=== PATIENT | female | born 1975 | race American Indian/Alaskan Native ===

== ENCOUNTER → 2018-10-29 | Outpatient (CLI) | payer OTHER ==
[2015-05-23 10:56] VITALS: BMI 30.9
[~2018-10-29] MED LIST: ACET-1718 PO; HYDR-653 PO; IBUP800T37 PO
[2018-10-29 09:27] LABS: PLATELET COUNT, AUTOMATED 345 K/uL (150-450)
[2018-10-29 10:55] LABS: LDL CHOLESTEROL 92 mg/dl
--- NOTE | 2018-10-29 11:26 | RADIOLOGY IMAGING REPORT ---
FACILITY: [facility] [place] PATIENT NAME: Santiago Whiteside : 1975 MR: [id number] V: [id number] EXAM DATE: ORDERING PHYSICIAN: LÓPEZ NARAYANAN TECHNOLOGIST: Location: [facility] Patient: Santiago Whiteside : 1975 Visit/Account:[id number] Date of Sevice: 10/29/2018 Exam type: KNEE 3 VIEW LEFT History: Left knee pain Comparison: None. Findings: Three standing views of the left knee demonstrates mild narrowing of the medial compartment. There i s no evidence of acute fracture or dislocation. No radiopaque intra-articular loose body is seen. IMPRESSION: 1. Mild narrowing of the medial compartment of the left knee Report Dictated By: Radha Pepper MD at 10/29/2018 11:19 AM Report E-Signed By: Radha Pepper MD at 10/29/2018 11:20 AM WSN:[email or web address]
--- NOTE | 2018-10-29 11:31 | RADIOLOGY IMAGING REPORT ---
FACILITY: [facility] [place] PATIENT NAME: Santiago Whiteside : 1975 MR: [id number] V: [id number] EXAM DATE: ORDERING PHYSICIAN: LÓPEZ NARAYANAN TECHNOLOGIST: Location: [facility] [place] Patient: Santiago Whiteside : 1975 Visit/Account:[id number] Date of Sevice: 10/29/2018 Exam type: CERVICAL SPINE 2 OR 3 VIEW History: Neck pain Comparison: None. Findings: Three views were submitted. C1 C7 are seen in gross anatomic alignment. There is no evidence of acu te fractures or subluxations. This mild disc space narrowing at C7-T1. No evidence of prevertebral soft tissue swelling IMPRESSION: 1. Mild disc space narrowing at C7-T1 Report Dictated By: Radha Pepper MD at 10/29/2018 11:25 AM Report E-Signed By: Radha Pepper MD at 10/29/2018 11:26 AM WSN:[email or web address]
--- NOTE | 2018-10-29 11:32 | RADIOLOGY IMAGING REPORT ---
FACILITY: [facility] PATIENT NAME: Santiago Whiteside : 1975 MR: [id number] V: [id number] EXAM DATE: ORDERING PHYSICIAN: LÓPEZ NARAYANAN TECHNOLOGIST: Location: [facility] Patient: Santiago Whiteside : 1975 Visit/Account:[id number] Date of Sevice: 10/29/2018 Exam type: L-SPINE 2 OR 3 VIEW History: Back pain Comparison: None. Findings: Two views were submitted There five nonrib-bearing lumbar-type vertebral bodies present. There is no evidence of acute fractu res or subluxations. The disc spaces appear well-preserved. IMPRESSION: 1. AP and lateral views lumbar spine are unremarkable. If the patient's pain continues MR may be he lpful Report Dictated By: Radha Pepper MD at 10/29/2018 11:20 AM Report E-Signed By: Radha Pepper MD at 10/29/2018 11:25 AM WSN:[email or web address]
== END ==
LOC: LAB 08:46
PROVIDERS: ATTEND Chiropractor Internist
DX: Z00.00 Encounter for general adult medical examination without abnormal findings (principal); Z13.21 Encounter for screening for nutritional disorder; Z13.6 Encounter for screening for cardiovascular disorders; E03.9 Hypothyroidism, unspecified; K59.9 Functional intestinal disorder, unspecified; R53.83 Other fatigue; E55.9 Vitamin D deficiency, unspecified; K58.9 Irritable bowel syndrome, unspecified
CPT/HCPCS: 36415; 72040; 72100; 82040; 82247; 82306; 82310; 82374; 82435; 82465; 82565; 82607; 82728; 82746; 82947; 83001; 83002; 83018; 83036; 83540; 83550; 83690; 83718; 84075; 84132; 84155; 84295; 84439; 84443; 84450; 84460; 84478; 84480; 84481; 84482; 84520; 85025; 86038; 86140; 86141; 86376; 86430

== ENCOUNTER → 2018-11-21 | Outpatient (CLI) | payer OTHER ==
[2015-05-23 10:56] VITALS: BMI 30.9
== END ==
LOC: LAB 08:58
PROVIDERS: ATTEND Chiropractor Internist
DX: Z00.01 Encounter for general adult medical examination with abnormal findings (principal); M35.9 Systemic involvement of connective tissue, unspecified; R53.83 Other fatigue
CPT/HCPCS: 36415; 81001; 85651; 86140